=== PATIENT | female | born 1955 | race American Indian/Alaskan Native ===

== ENCOUNTER 2018-12-30 17:55 | Emergency (ER) | payer MEDICAID ==
[2018-12-30 21:10] VITALS: BMI 40.2
[2018-12-30 21:17] VITALS: PULSE 70; RESP 20; TEMP 98; O2SAT 96
--- NOTE | 2018-12-30 22:15 | ED PDOC ---
Arrival/HPI - General Historian: Patient - History of Present Illness Narrative History of Present Illness (Text): 12/30/18 22:02 63yr old female presents today with rash to both arms x 1+ weeks. pt denies new soaps lotions detergents or perfumes. Patient has not taken any medications at home. Patient states she has had this once in the past and it resolved with a unknown cream. Patient states she has an appointment with the instructional resource teacher Dr. KO tomorrow. Pt states she couldnt deal with the itching so she came to the ER. pt denies headache, dizziness,weakness. no cp or sob. no other complaints. <Halina Medeiros - Last Filed: 12/30/18 22:02> <Ki Beck - Last Filed: 12/30/18 23:01> - General Chief Complaint: Abnormal Skin Integrity Time Seen by Provider: 12/30/18 18:27 Past Medical History - Provider Review Nursing Documentation Reviewed: Yes - Travel History Have you recently traveled outside [place] w/in the past 3 mons?: No - Psychiatric Hx Substance Use: No - Surgical History Hx Appendectomy: Yes Hx Cholecystectomy: Yes Hx Tonsillectomy: Yes <Halina Medeiros - Last Filed: 12/30/18 22:02> Family/Social History - Physician Review Nursing Documentation Reviewed: Yes Family/Social History: Unknown Family HX Smoking Status: Never Smoked Hx Alcohol Use: No Hx Substance Use: No <Halina Medeiros - Last Filed: 12/30/18 22:02> Allergies/Home Meds <Hailna Medeiros - Last Filed: 12/30/18 22:02> <Ki Beck - Last Filed: 12/30/18 23:01> Allergies/Adverse Reactions: Allergies No Known Allergies Allergy (Verified 12/30/18 21:11) Review of Systems - Review of Systems Constitutional: absent: Fatigue, Fevers Respiratory: absent: SOB, Cough Cardiovascular: absent: Chest Pain, Palpitations Gastrointestinal: absent: Abdominal Pain, Nausea, Vomiting Musculoskeletal: absent: Arthralgias, Back Pain, Neck Pain Skin: Rash, Pruritis Psychiatric: absent: Anxiety, Depression <Halina Medeiros - Last Filed: 12/30/18 22:02> Physical Exam Vital Signs Reviewed: Yes Vital Signs Temp Pulse Resp BP Pulse Ox 12/30/18 21:16 98.0 F 70 20 167/119 H 96 12/30/18 20:00 97.9 F 75 16 163/89 H 95 Temperature: Afebrile Blood Pressure: Hypertensive Pulse: Regular Respiratory Rate: Normal Appearance: Positive for: Well-Appearing, Non-Toxic, Comfortable Pain Distress: None Mental Status: Positive for: Alert and Oriented X 3 - Systems Exam Head: Present: Atraumatic Mouth: Present: Moist Mucous Membranes Respiratory/Chest: Present: Clear to Auscultation Cardiovascular: Present: Regular Rate and Rhythm Upper Extremity: Present: Normal ROM, NORMAL PULSES, Neurovascularly Intact, Capillary Refill < 2s, Other (right hand; there are multiple erythematous pinpoint papules and raised plaques noted to the dorsal aspect. on the left hand there are multiplepinpoint papules and raised plaques noted to the dorsal aspect and along the volar aspect aspect of the distal forearm. non tender. non blanching. ). No: Tenderness, Swelling Neurological: Present: GCS=15, Speech Normal Skin: Present: Warm, Dry Psychiatric: Present: Alert, Oriented x 3 <Halina Medeiros - Last Filed: 12/30/18 22:02> Vital Signs Temp Pulse Resp BP Pulse Ox 12/30/18 22:42 98.0 F 70 20 140/99 H 96 12/30/18 21:16 98.0 F 70 20 167/119 H 96 12/30/18 20:00 97.9 F 75 16 163/89 H 95 <Ki Beck - Last Filed: 12/30/18 23:01> Medical Decision Making ED Course and Treatment: 12/30/18 22:17 Patient is nontoxic well-appearing in no distress with stable vital signs no angioedema. Lungs are clear to auscultation bilaterally there is no wheezing noted. benadryl po pt has appointment with [employer] tomorrow. I advised taking Benadryl every 6 hours as needed for itch and apply hydrocortisone cream to the rash. pt was advised to see the instructional resource teacher tomorrow and not miss her appointment. Advised patient to follow up with primary care physician within the next 2 days and return if symptoms worsen persist or if new symptoms develop pt was seen and evaluated by dr. beck pt was made aware of elevated blood pressure. pt is asymptomatic. pt was advised to f/u with PMD regarding elevated blood pressure in er and need for repeat testing. pt was made aware of risks associated with elevated BP. Patient verbalizes understanding of discharge instructions and need for immediate followup. all aspects of this case were discussed the attending of record. Impression:rash Benadryl every 6 hours as needed for itch apply hydrocortisone twice daily to affected areas sparingly. Follow up with the [employer] tomorrow. Follow up with the primary care physician within the next 2 days. Return if symptoms worsen persist or if new symptoms develop: Shortness of breath, feeling of throat closing, difficulty speaking or any other concerning symptoms develop Reassessment Condition: Re-examined, Improved - Medication Orders Current Medication Orders: Diphenhydramine HCl (Benadryl) 25 mg PO ONCE ONE Stop: 12/30/18 22:02 <Halina Medeiros - Last Filed: 12/30/18 22:02> - Medication Orders Current Medication Orders: Discontinued Medications Diphenhydramine HCl (Benadryl) 25 mg PO ONCE ONE Stop: 12/30/18 22:02 Last Admin: 12/30/18 22:22 Dose: 25 mg <Ki Beck - Last Filed: 12/30/18 23:01> - PA / RING MAKER / Resident Statement RAJNI has reviewed & agrees with the documentation as recorded. RAJNI has examined the patient and agrees with the treatment plan. <Ki Beck - Last Filed: 12/30/18 23:01> Disposition/Present on Arrival - Present on Arrival Any Indicators Present on Arrival: No History of DVT/PE: No History of Uncontrolled Diabetes: No Urinary Catheter: No History of Decub. Ulcer: No History Surgical Site Infection Following: None - Disposition Have Diagnosis and Disposition been Completed?: Yes Disposition Time: 22:26 Patient Plan: Discharge <Halina Medeiros - Last Filed: 12/30/18 22:02> <Ki Beck - Last Filed: 12/30/18 23:01> - Disposition Diagnosis: Rash Disposition: HOME/ ROUTINE Condition: GOOD Discharge Instructions (ExitCare): Skin Rash (DC) Additional Instructions: Benadryl every 6 hours as needed for itch apply hydrocortisone twice daily to affected areas sparingly. Follow up with the [employer] tomorrow. Follow up with the primary care physician within the next 2 days. Return if symptoms worsen persist or if new symptoms develop: Shortness of br eath, feeling of throat closing, difficulty speaking or any other concerning symptoms develop Prescriptions: DiphenhydrAMINE [Benadryl] 25 mg PO Q6H #20 cap Hydrocortisone 2.5% 1 applic EXT BID #1 oint Referrals: Steve Ko MD [Staff Provider] - Follow up with primary Lety Mensah MD [Medical Doctor] - Follow up with primary [facility] [Outside] - Follow up with primary Forms: [facility] (Persian), WORK NOTE
[2018-12-30 22:46] VITALS: BP 140/99
== END 2018-12-30 22:50 | disposition home or self-care (01) ==
LOC: ED 17:55
DX: R21 Rash and other nonspecific skin eruption (principal)